=== PATIENT | female | born 1930 | race Caucasian/White ===

== ENCOUNTER → 2016-11-06 | Outpatient (CLI) | payer MEDICARE, OTHER | LOC: GMAJ 15:35 | PROVIDERS: ATTEND Family Medicine | DX: E03.9 Hypothyroidism, unspecified (principal) ==

== ENCOUNTER → 2017-02-19 | Outpatient (CLI) | payer MEDICARE, OTHER | LOC: GMAJ 10:38 | PROVIDERS: ATTEND Family Medicine | DX: E03.9 Hypothyroidism, unspecified (principal) ==

== ENCOUNTER → 2017-04-14 | Outpatient (CLI) | payer MEDICARE, OTHER ==
--- NOTE | 2017-04-15 15:04 | MRI ---
EXAM DESCRIPTION: MRI abdomen/MRCP CLINICAL HISTORY: Acute pancreatitis. Abdomen pain. Nausea and vomiting. Previous cholecystectomy COMPARISON: CT to 06/01/2016 TECHNIQUE: Multiplanar, multisequence MR images of the abdomen, MRCP protocol FINDINGS: Motion degraded study. No diagnostic stricture or filling defect in the common bile duct. Normal tapering without mass lesion in the duodenum. No abnormality of the proximal intrahepatic ducts. Previous cholecystectomy Marked pancreatic duct dilation beginning at the neck of the pancreas throughout the body and tail. Previous CT demonstrated a few punctate calcifications in the head and uncinate process and one calcification in the body related to chronic calcific pancreatitis. There was no pancreatic duct dilation on the CT from 2016. The dilated duct is about 7 mm transverse. The portion of the duct in the head neck junction demonstrates an abrupt cut off with a short segment of duct in the pancreas head. A direct connection with the common bile duct is not clearly delineated No diagnostic mass lesion. There is a difference in the signal intensity on T1-weighted images with higher signal in the uncinate and head and lower signal throughout the remainder of the pancreas. This is probably related to the obstruction and signal difference based on edema or other physiologic reason Diffuse fatty infiltration of the liver with mild fatty sparing centrally. No hepatic mass lesion. No mass lesion in the spleen or adrenal glands. There are a couple of small right renal cysts the largest of which is 1.4 cm No lymphadenopathy. No mass lesion in the visualized stomach, small or large intestine. A few partially visualized descending colon diverticula without diverticulitis IMPRESSION: Dilated pancreatic duct in the body and tail. Abrupt termination at the neck of the pancreas. Etiology is indeterminate although no definite mass lesion is seen. The presence of pre-existing known chronic calcific pancreatitis suggests a postinflammatory stricture is a good possibility. If stenting is performed recommend brush biopsies. Otherwise short interval follow-up 3 months, unless otherwise dictated by the clinical scenario. No diagnostic abnormality of the common bile duct or intrahepatic bile duct Fatty infiltration of the liver Electronically signed by: Willy Hammonds MD 04/15/2017 3:03 PM CDT
== END | disposition home or self-care (01) ==
LOC: MRI 13:03
PROVIDERS: ATTEND Internal Medicine Gastroenterology
DX: K85.90 Acute pancreatitis without necrosis or infection, unspecified (principal)

== ENCOUNTER → 2017-10-22 | Outpatient (CLI) | payer MEDICARE, OTHER | END | disposition home or self-care (01) | LOC: GMAJ 14:34 | PROVIDERS: ATTEND Family Medicine | DX: E03.9 Hypothyroidism, unspecified (principal) ==

== ENCOUNTER 2018-02-09 15:28 | Inpatient (IN) | payer MEDICARE, OTHER ==
[2018-02-09] MEDS ORDERED: SODIUM CHLORIDE 0.9% 500ML 500 ML IVS ONE (18:54)
--- NOTE | 2018-02-09 18:56 | ED.PDOC ---
History of Present Illness - General Chief Complaint: GI Problem Stated Complaint: abdominal pain Time Seen by Provider: 02/09/18 18:53 Source: patient Exam Limitations: no limitations - History of Present Illness Initial Comments: Halina Adams 87 y/o female brought by to ER with dull upper abdominal pains for the last 3 days worse with food.[place] nauseated no hematemesis,or blood in stool.Has history of chronic pancreatitis and had multiple work up done at [facility] but unable to find cause.Also had pancreatic stent in the past and scheduled to have another next month. Timing/Duration: getting worse, intermittent, other - 3 days Severity: moderate Improving Factors: nothing Worsening Factors: eating Associated Symptoms: loss of appetite Allergies/Adverse Reactions: Allergies Aspirin Allergy (Verified 07/22/13 07:08) Home Medications: Ambulatory Orders Atorvastatin Calcium [Lipitor] 40 mg PO HS #0 07/25/13 Carvedilol 6.25 mg PO BID #0 07/25/13 Clopidogrel Bisulfate [Plavix] 75 mg PO AM #0 07/25/13 Dipyridamole 50 mg PO BID #0 07/25/13 Estrogens, Conjugated [Premarin] 0.3 mg PO AM #0 07/25/13 Fenofibrate [Tricor] 145 mg PO AM #0 07/25/13 Furosemide [Lasix] 20 mg PO BID #0 07/25/13 Glipizide [Glucotrol Xl] 5 mg PO AM #0 07/25/13 HYDROcodone 5MG/APAP 325MG [[place] 5/325] 1 ea PO Q4-6H PRN #0 07/25/13 Levothyroxine Sodium [Synthroid] 0.05 mg PO AM #0 07/25/13 Losartan Potassium 25 mg PO AM #0 07/25/13 Pantoprazole Tablet [Protonix] 40 mg PO AM #0 07/25/13 Solifenacin [Vesicare] 5 mg PO AM #0 07/25/13 Topiramate [Topamax] 50 mg PO BID #0 07/25/13 Colchicine [Colcrys] 0.6 mg PO PRN 01/27/14 Review of Systems - Review of Systems Constitutional: States: no symptoms reported EENTM: States: no symptoms reported Respiratory: States: no symptoms reported Cardiology: States: no symptoms reported Gastrointestinal/Abdominal: States: see HPI Genitourinary: States: no symptoms reported Musculoskeletal: States: no symptoms reported All other Systems: Reviewed and Negative, No Change from Baseline Past Medical History (General) - Patient Medical History Hx Seizures: No Hx Stroke: Yes - TIAx3 Hx Asthma: No Hx of COPD: No Hx Cardiac Disorders: Yes Hx Congestive Heart Failure: No Hx Pacemaker: No Hx Hypertension: Yes Hx Diabetes: Yes Hx MRSA: No Hx Other PMH: Yes - chronic pancreatitis Surgical History: appendectomy, cholecystectomy, tonsillectomy, Hysterectomy - Vaccination History Hx Influenza Vaccination: Yes Hx Pneumococcal Vaccination: Yes - Social History Hx Alcohol Use: No Hx Substance Use: No Hx Physical Abuse: No Hx Emotional Abuse: No - Activities of Daily Living Grooming Ability: Independent Eating (Feeding) Ability: Independent Toileting Ability: Independent Family Medical History - Family History Mother Family History: Unknown Physical Exam - Physical Exam General Appearance: Alert, Anxious, No apparent distress Eye Exam: bilateral normal Ears, Nose, Throat: hearing grossly normal, normal ENT inspection, normal pharynx Neck: non-tender, supple, normal inspection Respiratory: chest non-tender, lungs clear, normal breath sounds, no respiratory distress Cardiovascular/Chest: normal peripheral pulses, regular rate, rhythm, no murmur Peripheral Pulses: radial,right: 2+, radial,left: 2+ Gastrointestinal/Abdominal: normal bowel sounds, soft, tenderness - upper abdomen Back Exam: no CVA tenderness, no vertebral tenderness Extremity: no pedal edema, no calf tenderness Neurologic: alert, oriented x 3 Skin Exam: normal color, warm/dry Progress - Progress Progress: 02/09/18 20:35 02/09/18 18:54 IV Care:Saline Lock per Protoc QSHIFT 02/09/18 19:00 URINE CULTURE W/COLONY COUNT Stat Laboratory Results - last 24 hr 02/09/18 02/09/18 02/09/18 19:00 19:00 19:15 WBC 7.0 RBC 4.20 Hgb 10.9 L Hct 33.8 L MCV 80.4 L MCH 25.9 L MCHC 32.2 L RDW 19.6 H Plt Count 294 MPV 8.1 Absolute Neuts (auto) 5.30 Absolute Lymphs (auto) 0.90 L Absolute Monos (auto) 0.70 Absolute Eos (auto) 0.10 Absolute Basos (auto) 0.00 Neutrophils % 75.4 Lymphocytes % 12.9 L Monocytes % 9.5 H Eosinophils % 1.8 Basophils % 0.4 Normal RBC Morphology 3+aniso PT 14.8 H INR 1.280 PTT (SP) 32.9 Sodium 137 Potassium 3.5 L Chloride 102 Carbon Dioxide 27 Anion Gap 11.5 L BUN 23 H Creatinine 0.95 BUN/Creatinine Ratio 24.2 H Random Glucose 133 H Serum Osmolality 279.4 Calcium 9.5 Magnesium 1.7 L Total Bilirubin 0.4 Direct Bilirubin 0.1 Indirect Bilirubin 0.3 AST 75 H ALT 10 Alkaline Phosphatase 66 Creatine Kinase 18 L CK-MB (CK-2) 1.0 CK-MB (CK-2) % Not Reportable Troponin I < 0.02 Serum Total Protein 7.2 Albumin 3.3 Lipase 19 L Urine Color Yellow Urine Appearance Sl cloudy Urine pH 7.0 Ur Specific [place] 1.015 Urine Protein Negative Urine Glucose (UA) Negative Urine Ketones Negative Urine Blood Trace-intact H Urine Nitrite Negative Urine Bilirubin Negative Urine Urobilinogen 0.2 Ur Leukocyte Esterase Small H Urine RBC 1-3 Urine WBC 10-20 H Ur Epithelial Cells 5-10 Urine Bacteria 4+ H 02/09/18 20:36 Vital Signs - 8 hr 02/09/18 02/09/18 02/09/18 17:40 18:40 19:22 Pulse Rate [ 71 70 74 pulse ox] Respiratory 18 18 14 Rate Blood Pressure 142/86 144/63 147/66 [Left Arm] O2 Sat by Pulse 96 99 89 L Oximetry - EKG/XRAY/CT XRAY: chest - no acute abnormalities Departure - Departure Clinical Impression: History of chronic pancreatitis Abdominal pain Qualifiers: Abdominal location: upper abdomen, unspecified Qualified Code(s): R10.10 - Upper abdominal pain, unspecified Time of Disposition: 21:01 Disposition: Admit Patient Condition: Fair Departure Forms: Patient Portal Self Enrollment Referrals: Magdaleno Jauregui MD [Primary Care Provider] - 1-2 Weeks Home Medications: Ambulatory Orders Atorvastatin Calcium [Lipitor] 40 mg PO HS #0 07/25/13 Carvedilol 6.25 mg PO BID #0 07/25/13 Clopidogrel Bisulfate [Plavix] 75 mg PO AM #0 07/25/13 Dipyridamole 50 mg PO BID #0 07/25/13 Estrogens, Conjugated [Premarin] 0.3 mg PO AM #0 07/25/13 Fenofibrate [Tricor] 145 mg PO AM #0 07/25/13 Furosemide [Lasix] 20 mg PO BID #0 07/25/13 Glipizide [Glucotrol Xl] 5 mg PO AM #0 07/25/13 HYDROcodone 5MG/APAP 325MG [[place] 5/325] 1 ea PO Q4-6H PRN #0 07/25/13 Levothyroxine Sodium [Synthroid] 0.05 mg PO AM #0 07/25/13 Losartan Potassium 25 mg PO AM #0 07/25/13 Pantoprazole Tablet [Protonix] 40 mg PO AM #0 07/25/13 Solifenacin [Vesicare] 5 mg PO AM #0 07/25/13 Topiramate [Topamax] 50 mg PO BID #0 07/25/13 Colchicine [Colcrys] 0.6 mg PO PRN 01/27/14 Decision To Admit - Decistion To Admit Decision to Admit Reason: Admit from ER Decision to Admit Date: 02/09/18 - D/W [place] Bourgeois-ANP/Hospitalist Decision to Admit Time: 21:01
[2018-02-09] MEDS ORDERED: HYDROmorphone HCL INJ 2 MG/ML VIAL IV ONE (19:06)
[2018-02-09] MEDS ORDERED: ONDANSETRON INJ 4 MG/2 ML VIAL IV ONE (19:06)
--- NOTE | 2018-02-09 19:20 | RAD ---
EXAM DESCRIPTION: Chest,1 View CLINICAL HISTORY: pain COMPARISON: 07/25/2013 FINDINGS: Cardiac silhouette is within normal limits. There is no focal parenchymal or pleural disease. Visualized osseous structures are within normal limits. IMPRESSION: No evidence of acute cardiopulmonary disease. Electronically signed by: Efra Sarkar 02/09/2018 7:18 PM CDT
[2018-02-09] MEDS ORDERED: IPRATROPIUM/ALBUTEROL 3 ML VIAL NEB ONE (21:04)
[2018-02-09] MEDS ORDERED: SODIUM CHLORIDE 0.9% (FLUSH) 10 ML SYG IV PRN (21:55)
--- NOTE | 2018-02-09 21:55 | HP ---
SUPERVISING PHYSICIAN: Magdaleno Jauregui MD CHIEF COMPLAINT: Abdominal pain. HISTORY OF PRESENT ILLNESS: This is an 87-year-old female with a history of chronic pancreatitis who came to the Emergency Room due to a three day history of upper abdominal pain. Apparently it is a little bit worse with food. She had some nausea, but no vomiting. She does have a history of chronic pancreatitis and has had pancreatic stents in the past. She was concerned that she may be getting another acute episode. When she came to the Emergency Room, her workup included labs and chest x-ray. Her labs showed a normal white count with a hemoglobin 10.9, hematocrit 33.8, platelet count 294. Chemistries showed a little bit of prerenal azotemia. Lipase was normal. UA was done and showed cloudy urine with 10 to 20 WBCs and 4+ urine bacteria. Chest x-ray did not show any significant findings. However, due to her ongoing, she is referred for observation. Upon examination, the patient has been given Dilaudid and her pain is much improved. She states at home she took as many as 3 hydrocodone without relief. PAST MEDICAL HISTORY: 1. Chronic pancreatitis with pancreatic stents place in the past. 2. Type 2 diabetes mellitus. 3. Hyperlipidemia. 4. Gastroesophageal reflux disease. 5. Hypertension. 6. Hypothyroidism. 7. Melanoma. 8. Chronic kidney disease. 9. Neuropathy. 10. Transient ischemic attack. PAST SURGICAL HISTORY: 1. Appendectomy. 2. Laparoscopic cholecystectomy. 3. Hysterectomy with bilateral salpingo-oophorectomy. 4. Tonsillectomy. 5. Lumbar fusion. 6. Bilateral knee replacement. 7. Bursectomies on bilateral hips. 8. Skin cancer removals which include melanoma, squamous cell carcinoma and basal cell carcinoma. 9. Benign cyst removed from the left foot. 10. Renal stents placed in the past ans subsequently removed. 11. Right shoulder arthroscopy. 12. Colonoscopy. 13. EGD. 14. ERCP with stent placed and subsequent removal. 15. Carpal tunnel release. 16. Trigger finger release. CURRENT MEDICATIONS: Please see the electronic record, they are not verified in the computer as of yet. ALLERGIES: ASPIRIN. FAMILY HISTORY: Significant for heart disease, Alzheimer's disease, cancer. SOCIAL HISTORY: No alcohol, no drugs, no smoking. REVIEW OF SYSTEMS: CONSTITUTIONAL: No fever or chills. No recent weight loss or weight gain. No malaise. HEENT: No headaches, vision changes, ear pain, nasal congestion or throat pain. RESPIRATORY: No cough, hemoptysis or pleuritic chest pain. CARDIOVASCULAR: No chest pain, palpitations or peripheral edema. GASTROINTESTINAL: Positive for nausea. No vomiting. Positive for upper abdominal pain. No diarrhea, constipation. GENITOURINARY: No dysuria, frequency or flank pain. HEMATOLOGIC: No easy bruising and no transfusion reactions. ENDOCRINE: No polydipsia, polyuria, polyphagia. No heat or cold intolerance. NEUROLOGIC: No headaches, vision changes, syncope, paresthesias. PHYSICAL EXAMINATION: VITAL SIGNS: Blood pressure 147/66. Heart rate 94. Respiratory rate 18. Temperature afebrile. O2 saturation 99%. GENERAL: Ms. Adams is an 87-year-old female who is in no distress currently. HEENT: Normocephalic, atraumatic. Pupils are equal and reactive. No nasal drainage. Throat with moist mucosa. NECK: Supple. Midline trachea. No jugular venous distention. CHEST: Symmetrical with equal rise and fall of the chest with inspiration and expiration. Lung sounds are clear to auscultation bilaterally. CARDIOVASCULAR: Regular rate and rhythm. Normal S1, S2. ABDOMEN: Soft. Positive bowel sounds. She does have epigastric tenderness to palpation. No lower abdominal tenderness to palpation. GENITOURINARY: Deferred. EXTREMITIES: Lower extremities with no significant edema. Pulses 2+. Capillary refill is less than 2 seconds. NEUROLOGIC: The patient is alert and oriented. Moves all extremities. Extraocular movements are intact. LABORATORY: As discussed above in history of present illness. ASSESSMENT: 1. Intractable abdominal pain in the epigastric area in a patient with a history of chronic pancreatitis without an acute exacerbation at this time. 2. Urinary tract infection. 3. Mild anemia. 4. Dehydration with prerenal azotemia. 5. Diabetes mellitus. PLAN: At this time, we will admit the patient for symptom control. I do not feel that she is having an acute exacerbation of her chronic pancreatitis. She does in fact have a urinary tract infection but I do not think it is causing her symptoms. I will treat with antibiotics and monitor the cultures. Additionally, she looks to be a little bit dehydrated, so I am going to give her some fluids. We will recheck her labs in the morning and her pain under control with Dilaudid 1 mg p.r.n. as she got in the Emergency Room and that seemed to help her. She does have multiple specialists in out of town locations and if she begins to exhibit exacerbation of pancreatitis, she may need to be referred to those facilities. However, at this point, that is not the case. We will resume her home medications tomorrow once they have been updated and verified. #[id number] ROSA
[2018-02-09] MEDS ORDERED: cefTRIAXone SODIUM 1 GM VIAL ONE (22:14)
[2018-02-09] MEDS ORDERED: SODIUM CHL 0.9% 50ML MIN-BAG+ 50 ML IVPB ONE (22:14)
[2018-02-09] MEDS: KCL 20 MEQ/NS 1,000 ML IVS PRN (22:19)
[2018-02-09] MEDS: cefTRIAXone SODIUM 1 GM in SODIUM CHL 0.9% 50ML MIN-BAG+ 50 ML IVPB SCH (22:24)
[2018-02-09] MEDS: IV SET AND CAP CHANGE INJ INJ SCH (22:26)
[2018-02-10] MEDS: HYDROmorphone HCL INJ 2 MG/ML VIAL IV PRN ×3 (00:12→08:13)
[2018-02-10] MEDS ORDERED: MAGNESIUM SULFATE PREMIX 2GM 2 GM in PREMIX BAG 1 BAG IVPB ONE (08:42)
[2018-02-10] MEDS: KCL 20 MEQ/NS 1,000 ML IVS PRN (08:46)
[2018-02-10] MEDS ORDERED: NON-FORMULARY MEDICATION 1 EA MIS (Fenofibrate [Tricor] 145 MG) PO SCH (09:00)
[2018-02-10] MEDS ORDERED: MAGNESIUM SULFATE PREMIX 2GM 50 ML IVPB ONE (09:20)
[2018-02-10] MEDS ORDERED: GLUCAGON INJ 1 MG VIAL SUBCU PRN (09:34)
[2018-02-10] MEDS ORDERED: DEXTROSE 50% 25 GM/50 ML SYG IV PRN (09:34)
[2018-02-10] MEDS ORDERED: INSULIN LISPRO 100 UNITS/ML PEN SUBCU SCH (11:30)
[2018-02-10] MEDS: CLOPIDOGREL 75 MG TAB PO SCH (11:38)
[2018-02-10] MEDS: CARVEDILOL 3.125 MG TAB PO SCH ×2 (11:38→20:56)
[2018-02-10] MEDS: TOPIRAMATE 25 MG TAB PO SCH ×2 (11:39→20:57)
[2018-02-10] MEDS: DICYCLOMINE HCL 20 MG TAB PO SCH ×3 (11:39→20:55)
--- NOTE | 2018-02-10 11:47 | CT ---
EXAM DESCRIPTION: Abdomen/Pelvis w/wo Contrast: Computed Tomography. CLINICAL HISTORY: abd pain COMPARISON: CT abdomen without contrast 12/11/2015. TECHNIQUE: Spiral-axial scans at 5.0 - mm intervals from the lung bases through the pubic symphysis, after water - soluble oral contrast, and scans repeated through the same levels after nonionic IV contrast. . Coronal and sagittal 2.0 - mm reconstructions. Tab. Delayed axial helical 5.0 - mm scans, same levels. No adverse reactions. Total Exam DLP: 2546.57 mGy-cm. This exam was performed according to our departmental CT dose-optimization program which includes automated exposure control, adjustment of the mA and/or kV according to patient size and/or use of iterative reconstruction technique; to reduce radiation dose to as low as reasonably achievable (ALARA). FINDINGS: Lung bases and pleura: Bilateral pleural thickening. Atelectasis right posterior lung base and bibasilar scarring. Coronary artery and aortic atherosclerotic calcifications. Liver, Spleen, Stomach, Adrenal glands: Stomach distended with gas and mostly oral contrast distally. Eccentric mass abutting the posterior wall of the greater curvature of the body of the stomach with central low-density nonenhancing. Mass approximately 3 x 4 cm possibly attached to the outer lining not mucosa. Adjacent mesenteric stranding Spleen and adrenal glands and kidneys unremarkable.. Pancreas/Gallbladder/Ducts: Pancreatic duct dilated. Gallbladder not well seen. Pancreatic head slightly prominent. Minimal stranding inferior to the body.. Kidneys and Ureters: Atrophy of the bilateral kidneys. Mesentery: Minimal stranding bilateral upper quadrants of the abdomen. Aorta: Diffuse atherosclerotic calcification narrowing of the distal lumen and calcification in the proximal common iliac arteries. No aneurysm. Small Bowel: Contains oral contrast with no distention proximally. No air-fluid levels. Terminal Ileum/Cecum: Normal caliber. Appendix not visualized. Normal density of the surrounding fat. Colon: Redundant descending colon with diffuse fecal material. Minimal diverticula distal descending and sigmoid colon sigmoid colon the minimally redundant. No calcifications. Pelvic Organs: Vaginal cuff negative. No fluid in the cul-de-sac. Urinary bladder well-distended with no radiodense stones. Spine and Bony Pelvis: Posterior fusion construct L3-S1 with spondylosis multiple levels. Bilateral significant L5-S1 narrowing. Abdominal Wall/Back Soft Tissues: Small bilateral fatty inguinal hernias not containing bowel. IMPRESSION: 1. Fatty stranding inferior to the proximal and mid body of the pancreas and be indicative of pancreatitis. Pancreatic duct dilated but no definite mass in the pancreatic head. 2. Irregularly enhancing mass on the posterior wall of the greater curvature of the upper stomach with central necrosis. Cannot exclude primary inflammatory lesion, primary malignancy, or metastatic disease. Minimal adjacent fatty stranding. 3. Redundant colon with distal diverticulosis but no complications. Diffuse areas of fatty stranding may be related to patient's age. No ascites or free air. Small bilateral fatty inguinal hernias not containing bowel. Electronically signed by: Efra Vance MD 02/10/2018 11:45 AM CDT
[2018-02-10] MEDS: ESTROGENS CONJUGATED 0.3 MG PO SCH (12:23)
[2018-02-10] MEDS: TOLTERODINE TARTRATE ER 4 MG CAP PO SCH ×2 (12:23→20:56)
[2018-02-10] MEDS: KCL 20MEQ/D5 1/2NS 1,000 ML IVS PRN ×2 (12:26→20:43)
--- NOTE | 2018-02-10 13:55 | PN ---
DATE: 02/10/18 SUPERVISING PHYSICIAN: Magdaleno Jauregui MD SUBJECTIVE: The patient is lying in bed and complains of the epigastric abdominal pain but no nausea and vomiting at this time. No shortness of breath or chest pain. She says she just cannot get comfortable and continues to hurt, although using the pain medications here in the hospital have helped more than her oral pain medication at home. OBJECTIVE: VITAL SIGNS: She is afebrile. Heart rate 59, blood pressure 116/62, it dropped as low as 95/59. Respiratory rate 18, 02 saturation 92% on room air. GENERAL: This is a 89 year-old female patient lying in her hospital bed. She is in no acute distress. RESPIRATORY: Essentially clear to auscultation bilaterally. CARDIAC: Regular rate and rhythm. GI: Abdomen soft, tender in the epigastric and left upper quadrant. There is no rebound tenderness or guarding. Bowel sounds are positive. EXTREMITIES: No cyanosis, clubbing, or edema. NEURO: She is awake, alert, and oriented x3. LABORATORY: WBC 6.3 with hemoglobin of 10, hematocrit 31.3, platelet count 259 ,000, sodium 138, potassium 3.9, chloride 107, carbon dioxide 24, BUN 20, creatinine 0.97, glucose 178. AST 62, ALT 9, serum total protein 6.1. Albumin 2.9. Urine culture is pending. CT of the abdomen and pelvis shows: 1. Fatty stranding inferior to the proximal and midbody of the pancreas and could be indicative of pancreatitis. Pancreatic duct is dilated but no definite mass in the pancreatic head. 2. Irregularly enhancing mass on the posterior wall of the great curvature of the upper stomach with central necrosis, cannot exclude primary inflammatory lesion, primary malignancy or metastatic disease. Minimal adjacent fatty stranding. 3. Redundant colon with distal diverticulosis with no complications. Diffuse area of fatty stranding may be related to patient's age. No ascites or free air. Small bilateral fatty inguinal hernia is not containing bowel. All other labs and films have been reviewed via the EMR. ASSESSMENT: 1. Chronic pancreatitis with an acute exacerbation. 2. Intractable abdominal pain in the epigastric region most likely secondary to #1. 3. Urinary tract infection. 4. Mild anemia. 5. Dehydration with prerenal azotemia. 6. Diabetes mellitus. PLAN: The patient has been changed from observation to an inpatient. She will be on bowel rest and I have started her on a dextrose solution IV. Will monitor her blood sugars every 6 hours. She does have an appointment with her GI doctor who is Dr. Abernathy.on March 02, 2018. She has been made n.p.o. Do routine labs in the morning. Will follow closely and treat as needed. #[id number] MTDD
[2018-02-10] MEDS: FUROSEMIDE 40 MG TAB PO SCH (15:50)
[2018-02-10] MEDS: INSULIN LISPRO 100 UNITS/ML PEN SUBCU SCH (18:47)
[2018-02-10] MEDS ORDERED: SODIUM CHL 0.9% 50ML MIN-BAG+ 50 ML IVPB ONE (19:29)
[2018-02-10] MEDS ORDERED: cefTRIAXone SODIUM 1 GM VIAL ONE (19:30)
[2018-02-10] MEDS ORDERED: ATORVASTATIN 20 MG TAB PO SCH (21:00)
[2018-02-10] MEDS: cefTRIAXone SODIUM 1 GM in SODIUM CHL 0.9% 50ML MIN-BAG+ 50 ML IVPB SCH (21:47)
[2018-02-11] MEDS: INSULIN LISPRO 100 UNITS/ML PEN SUBCU SCH ×4 (00:15→18:35)
[2018-02-11] MEDS: HYDROmorphone HCL INJ 2 MG/ML VIAL IV PRN ×3 (01:02→09:44)
[2018-02-11] MEDS: KCL 20MEQ/D5 1/2NS 1,000 ML IVS PRN ×3 (05:11→21:19)
[2018-02-11] MEDS: CARVEDILOL 3.125 MG TAB PO SCH ×2 (08:29→21:15)
[2018-02-11] MEDS: FENOFIBRIC ACID 135 MG CAP PO SCH (08:29)
[2018-02-11] MEDS: FUROSEMIDE 40 MG TAB PO SCH ×2 (08:30→17:13)
[2018-02-11] MEDS: TOLTERODINE TARTRATE ER 4 MG CAP PO SCH ×2 (08:31→21:14)
[2018-02-11] MEDS: CLOPIDOGREL 75 MG TAB PO SCH (08:32)
[2018-02-11] MEDS: TOPIRAMATE 25 MG TAB PO SCH ×2 (08:32→21:14)
[2018-02-11] MEDS: ESTROGENS CONJUGATED 0.3 MG PO SCH (08:33)
[2018-02-11] MEDS: DICYCLOMINE HCL 20 MG TAB PO SCH ×3 (08:34→21:15)
[2018-02-11] MEDS: LOSARTAN POTASSIUM 25 MG TAB PO SCH (08:45)
[2018-02-11] MEDS: LEVOTHYROXINE SODIUM 0.025 MG TAB PO SCH (08:45)
[2018-02-11] MEDS: ENOXAPARIN SODIUM 40 MG/0.4 ML SYG SUBCU SCH (15:47)
[2018-02-11] MEDS: PANTOPRAZOLE SODIUM IV 40 MG VIAL IV SCH (15:47)
--- NOTE | 2018-02-11 16:28 | PN ---
DATE: 02/11/18 SUPERVISING PHYSICIAN: Magdaleno Jauregui M.D. SUBJECTIVE: The patient is lying in bed asleep. She awakens easily. She has had several bouts of epigastric pain that has required IV pain medications. The pain is less severe than it was. She also has had some mild diarrhea, although she said when she is on a liquid diet she frequently has problems with diarrhea. We discussed that Dr. Roldan wanted her to make sure she keeps her appointment on the with him and she has agreed to do so. She has been told that she should take the DVD of her radiology reports to Dr. Roldan at the time of her appointment. OBJECTIVE: VITAL SIGNS: She is afebrile, heart rate 65, blood pressure 103/59, respiratory rate 16, O2 sat 93% on room air. RESPIRATORY: Essentially clear to auscultation bilaterally. CARDIAC: Regular rate and rhythm. GASTROINTESTINAL: Abdomen is soft, nondistended. It is mildly tender to the epigastric region. There is no rebound tenderness or guarding. Her tenderness has improved since yesterday. NEUROLOGIC: She is awake, alert and oriented times three. LABORATORY: WBCs are 5.6, hemoglobin 9.3, hematocrit 30.3, platelets 282. Sodium 138, potassium 4.3, chloride 107, carbon dioxide 25, BUN 16, creatinine 0.96. Preliminary urine cultures show no growth after 24 hours. All other labs and films have been reviewed via the EMR. ASSESSMENT: 1. Chronic pancreatitis with an acute exacerbation with a low amylase and lipase. 2. Intractable abdominal pain in the epigastric region most likely secondary to #1. 3. Urinary tract infection. 4. Mild anemia. 5. Dehydration with prerenal azotemia. 6. Diabetes mellitus. 7. Abdominal mass on the posterior wall of the great curvature of the upper stomach of unknown etiology per CT scan. PLAN: We will continue present supportive care. I will advance her diet this evening. Hold on checking her labs tomorrow as we will see how she tolerates her diet. I spoke with Dr. Roldan's office, her food truck caterer, and they strongly encourage the patient to do her followup with him on March 02. Otherwise we will continue to follow the patient closely. Dr. Jauregui is the collaborating physician available for consultation. #[id number] [facility]
[2018-02-11] MEDS ORDERED: SODIUM CHL 0.9% 50ML MIN-BAG+ 50 ML IVPB ONE (20:28)
[2018-02-11] MEDS ORDERED: cefTRIAXone SODIUM 1 GM VIAL ONE (20:29)
[2018-02-11] MEDS: cefTRIAXone SODIUM 1 GM in SODIUM CHL 0.9% 50ML MIN-BAG+ 50 ML IVPB SCH (21:16)
[2018-02-11] MEDS: ATORVASTATIN 20 MG TAB PO SCH (21:16)
[2018-02-12] MEDS: INSULIN LISPRO 100 UNITS/ML PEN SUBCU SCH ×5 (00:28→21:35)
[2018-02-12] MEDS: PANTOPRAZOLE SODIUM IV 40 MG VIAL IV SCH (06:24)
[2018-02-12] MEDS: LEVOTHYROXINE SODIUM 0.025 MG TAB PO SCH (06:24)
[2018-02-12] MEDS: KCL 20MEQ/D5 1/2NS 1,000 ML IVS PRN (08:37)
[2018-02-12] MEDS: LOSARTAN POTASSIUM 25 MG TAB PO SCH (08:39)
[2018-02-12] MEDS: CARVEDILOL 3.125 MG TAB PO SCH ×2 (08:39→21:33)
[2018-02-12] MEDS: CLOPIDOGREL 75 MG TAB PO SCH (08:39)
[2018-02-12] MEDS: FENOFIBRIC ACID 135 MG CAP PO SCH (08:39)
[2018-02-12] MEDS: TOLTERODINE TARTRATE ER 4 MG CAP PO SCH ×2 (08:40→21:32)
[2018-02-12] MEDS: TOPIRAMATE 25 MG TAB PO SCH ×2 (08:40→21:32)
[2018-02-12] MEDS: FUROSEMIDE 40 MG TAB PO SCH (08:43)
[2018-02-12] MEDS: DICYCLOMINE HCL 20 MG TAB PO SCH ×3 (08:43→16:48)
[2018-02-12] MEDS: SODIUM CHLORIDE 0.9% (FLUSH) 10 ML SYG IV SCH (10:27)
[2018-02-12] MEDS: ENOXAPARIN SODIUM 40 MG/0.4 ML SYG SUBCU SCH (10:46)
[2018-02-12] MEDS ORDERED: cefTRIAXone SODIUM 1 GM VIAL ONE (20:05)
[2018-02-12] MEDS ORDERED: SODIUM CHL 0.9% 50ML MIN-BAG+ 0 ML IVPB ONE (20:05)
--- NOTE | 2018-02-12 20:07 | PN ---
DATE: 02/12/18 SUPERVISING PHYSICIAN: Magdaleno Jauregui M.D. SUBJECTIVE: The patient is lying in bed. She is reading a book. Has had no complaints of abdominal pain, nausea or vomiting. Has not required any IV pain medications. We again talked about her going to see her power nut runner operator on 03/02/18 and she has agreed to see him. OBJECTIVE: She is afebrile, heart rate 92, blood pressure 147/68, respiratory rate 20, O2 sat 97% on room air. RESPIRATORY: Essentially clear to auscultation bilaterally. CARDIAC: Regular rate and rhythm. GASTROINTESTINAL: She is slightly tender to the epigastric region but much improved since yesterday. No guarding or rebound tenderness. Bowel sounds are positive. NEUROLOGIC: She is awake, alert and oriented times three. LABORATORY: Blood sugars have run between 126 and 211. Urine culture shows no growth. All other labs and films have been reviewed via the EMR. ASSESSMENT: 1. Chronic pancreatitis with an acute exacerbation with a low amylase and lipase. 2. Intractable abdominal pain in the epigastric region most likely secondary to #1. 3. Urinary tract infection. 4. Mild anemia. 5. Dehydration with prerenal azotemia. 6. Diabetes mellitus. 7. Abdominal mass on the posterior wall of the great curvature of the upper stomach of unknown etiology per CT scan. PLAN: We will continue present supportive care. I have advanced her to a bland diet. She is usually on Tresiba 12 units. Because she has been on clear liquids and just now changed to a bland diet, I will give her 5 units of Tresiba tonight. I have discontinued her IV. I have also discontinued her IV pain medications. She has a DVD that is on her chart and it needs to go with her on discharge. If she tolerates her diet well overnight, she should be able to be discharged tomorrow. She does have an appointment with her GI doctor in [place], Dr. Rlodan, on 03/02/18. I have called his office and he is aware of the mass that is growing by her stomach. She is to followup with him at that time and then Dr. Jauregui, her primary care physician, after that. I have ordered routine lab for in the morning. We will continue to monitor the patient closely and follow as needed. Dr. Jauregui is the collaborating physician available for consultation. #[id number] [facility]
[2018-02-12] MEDS ORDERED: NON-FORMULARY MEDICATION 1 EA MIS SUBCU ONE (21:00)
[2018-02-12] MEDS: IV SET AND CAP CHANGE INJ INJ SCH (21:00)
[2018-02-12] MEDS: ATORVASTATIN 20 MG TAB PO SCH (21:30)
[2018-02-12] MEDS: CEFDINIR 300 MG CAP PO SCH (22:43)
[2018-02-13] MEDS: SODIUM CHLORIDE 0.9% (FLUSH) 10 ML SYG IV SCH ×2 (02:34→09:16)
[2018-02-13] MEDS: LEVOTHYROXINE SODIUM 0.025 MG TAB PO SCH (06:24)
[2018-02-13] MEDS ORDERED: PANTOPRAZOLE SODIUM TAB 40 MG PO SCH (06:30)
[2018-02-13] MEDS: INSULIN LISPRO 100 UNITS/ML PEN SUBCU SCH ×2 (07:44→11:59)
[2018-02-13] MEDS: DICYCLOMINE HCL 20 MG TAB PO SCH ×2 (07:45→11:59)
[2018-02-13] MEDS: FUROSEMIDE 40 MG TAB PO SCH ×2 (08:35→09:16)
[2018-02-13] MEDS: CEFDINIR 300 MG CAP PO SCH (09:15)
[2018-02-13] MEDS: CARVEDILOL 3.125 MG TAB PO SCH (09:15)
[2018-02-13] MEDS: TOLTERODINE TARTRATE ER 4 MG CAP PO SCH (09:15)
[2018-02-13] MEDS: LOSARTAN POTASSIUM 25 MG TAB PO SCH (09:15)
[2018-02-13] MEDS: TOPIRAMATE 25 MG TAB PO SCH (09:15)
[2018-02-13] MEDS: CLOPIDOGREL 75 MG TAB PO SCH (09:16)
[2018-02-13] MEDS: FENOFIBRIC ACID 135 MG CAP PO SCH (09:16)
[2018-02-13] MEDS: ENOXAPARIN SODIUM 40 MG/0.4 ML SYG SUBCU SCH (09:21)
[2018-02-13 10:09] VITALS: BP 135/62; TEMP 97.4; O2SAT 99
--- NOTE | 2018-02-17 15:04 | DS ---
SUPERVISING PHYSICIAN: Kwame French M.D. DISCHARGE DIAGNOSIS: 1. Chronic pancreatitis with an acute exacerbation. 2. Abdominal pain epigastric region secondary to #1. 3. Urinary tract infection. treated to completion with culture results showing to be negative. 4. Mild anemia, microcytic/hypochromic presentation, likely chronic illness. 5. Dehydration with prerenal azotemia improved with IV fluids. 6. Diabetes mellitus. 7. Abdominal mass on the posterior wall of the great curvature of the upper stomach of unknown etiology per CT scan being followed by her etl database developer, in [facility], Dr. Roldan with an appointment on 03/02/18. REASON FOR HOSPITALIZATION: Ms. Adams is an 87-year-old female patient with a history of chronic pancreatitis that presented to the Emergency Room due to a three day history of upper abdominal pain. Apparently she had been getting worse with food and has some nausea but no vomiting. She has had pancreatic stents in the past and was concerned that she may be getting another acute episode. When she presented to the Emergency Room, her labs indicated she had a normal white count. Chemistries showed prerenal azotemia with pancreatic enzymes being normal. UA showed 10 to 20 WBCs, 4+ bacteria. Chest x -ray without any significant findings. She was admitted to the Medical/ Surgical floor for further treatment of acute pancreatitis in stable condition. LABORATORY: White count on admission was 7,000, hemoglobin 10.9, hematocrit 33.8, platelet count 294,000. Differential showed to be within normal limits. At discharge white count was 5,000, hemoglobin and hematocrit were stable at 10.7 and 32.9, platelet count 347,000. Differential was unchanged. RBC indices indicated a microcytic hypochromic presentation. Coagulation studies showed just a slightly elevated PT of 14.8 with INR 1.28, PTT 32.9. Chemistries at admission in the E. R. showed normal electrolytes, BUN 20, creatinine 0.97, glucose 101. AST was slightly elevated at 62. All other liver functions were within normal limits as well as her amylase and lipase. At discharge, her electrolytes showed to be within normal limits with potassium 4.3. Pancreatic enzymes remained within normal limits. Blood sugars were well controlled between 132 to 235. Urine showed trace of blood with small leukocyte esterase with microscopic showing 1 to 3 RBCs, 10 to 20 WBCs, 5 to 10 epithelials with 4+ bacteria. MICROBIOLOGY: Urine culture final results in a clean catch specimen showed insignificant colony count of mixed tamy. RADIOLOGY: She had a chest x-ray initially in the Emergency Department and per radiology interpretation of portable chest showed no evidence of acute cardiopulmonary disease. This was followed-up with a CT of the abdomen and pelvis after admission which was done with and without contrast, findings per radiology interpretation showed fatty stranding inferior to the proximal and mid body of the pancreas indicating pancreatitis with the pancreatic duct dilated but no definite mass in the pancreatic head. There is note of irregular enhancing mass in the posterior wall of the greater curvature of the upper stomach with essential necrosis. Could not exclude primary inflammatory lesion, primary malignancy or metastatic disease. Minimal adjacent fatty stranding. There was also redundant colon with distal diverticulosis but no complications. Diverse areas of fat stranding may be related to the patient's age. No ascites or free air. There was small bilateral fatty inguinal hernias not containing bowel. HOSPITAL COURSE: Ms. Adams was admitted as noted above for acute pancreatitis. She was given fluid. She was kept NPO until she was no longer having abdominal pains. She was provided pain management with Dilaudid as needed. In regards to her urinary tract infection, initially on admission. She was started on Rocephin. She had magnesium replacement as well as fluids and was on sliding scale. As her abdominal pain subsided, she was advanced in her diet and was tolerating this well on the day of discharge. She was no longer having significant pain and was felt clinically stable enough to be discharged. It was felt that she was no longer having any symptoms from the urinary tract infection and given that the culture had not grown anything of significance, antibiotics were stopped and she was discharged without any continuation of antibiotics. PLAN: Ms. Adams was discharged on 02/13/18 to have close followup with Dr. Roldan, her GI specialist, as scheduled and Dr. Jauregui, her primary care provider. She was to resume her activities as tolerated. Diet was to resume a normal diet to include an 1800 calorie ADA diet as tolerated. No new medications were prescribed at discharge. All other medications were resumed as previous. At discharge, condition was stable and improved. #[id number] [facility]
== END 2018-02-13 12:03 | disposition home or self-care (01) | DRG 439 ==
LOC: ER 15:28 → MS 21:53 → OBSVTOIN 21:53
PROVIDERS: ADMIT Nurse Practitioner; ATTEND Nurse Practitioner Family
DX: K85.90 Acute pancreatitis without necrosis or infection, unspecified (principal); N39.0 Urinary tract infection, site not specified; K86.1 Other chronic pancreatitis; E11.40 Type 2 diabetes mellitus with diabetic neuropathy, unspecified; E11.22 Type 2 diabetes mellitus with diabetic chronic kidney disease; I12.9 Hypertensive chronic kidney disease with stage 1 through stage 4 chronic kidney disease, or unspecified chronic kidney disease; N18.9 Chronic kidney disease, unspecified; E78.5 Hyperlipidemia, unspecified; K21.9 Gastro-esophageal reflux disease without esophagitis; E03.9 Hypothyroidism, unspecified; Z96.653 Presence of artificial knee joint, bilateral; D64.9 Anemia, unspecified; E86.0 Dehydration; Z85.820 Personal history of malignant melanoma of skin; Z86.73 Personal history of transient ischemic attack (TIA), and cerebral infarction without residual deficits; Z98.1 Arthrodesis status

== ENCOUNTER → 2018-03-16 | Outpatient (CLI) | payer MEDICARE, OTHER | LOC: GMAJ 11:10 | PROVIDERS: ATTEND Family Medicine | DX: E03.9 Hypothyroidism, unspecified (principal) ==

== ENCOUNTER 2018-05-15 22:51 | Observation (INO) | payer MEDICARE, OTHER ==
[2018-05-15] MEDS ORDERED: SUCRALFATE 1 GM TAB PO ONE (23:15)
[2018-05-15] MEDS ORDERED: ASPIRIN TABLET 325 MG TAB PO ONE (23:15)
[2018-05-15] MEDS ORDERED: ALUM & MAG HYDROX-SIMETHICONE 30 ML, LIDOCAINE VISCOUS 2% 15 ML PO ONE ×2 (23:15)
[2018-05-15] MEDS ORDERED: ALUM & MAG HYDROX-SIMETHICONE 30 ML UD ONE (23:30)
[2018-05-15] MEDS ORDERED: LIDOCAINE HCL 2% (MOUTH-THROAT) 15 ML UD ONE (23:30)
--- NOTE | 2018-05-15 23:34 | RAD ---
EXAM DESCRIPTION: Chest,1 View CLINICAL HISTORY:87 years Female, substernal chest pain Comparison: February 09, 2018 FINDINGS: No focal lung consolidation. No pleural effusion. No pneumothorax. Cardiac and mediastinal silhouette is unremarkable. No acute osseous abnormality. Soft tissues are unremarkable. IMPRESSION: No acute findings. No focal lung consolidation. Electronically signed by: Brendan Lenz MD 05/15/2018 11:33 PM CDT
[2018-05-16] MEDS ORDERED: PANTOPRAZOLE INJECTION 40 MG in SODIUM CHLORIDE 0.9% 100ML 100 ML IVPB ONE (00:27)
[2018-05-16] MEDS ORDERED: PANTOPRAZOLE SODIUM IV 40 MG VIAL ONE (00:28)
[2018-05-16] MEDS ORDERED: SODIUM CHLORIDE 0.9% 100ML 100 ML IVPB ONE ×2 (00:29→01:31)
--- NOTE | 2018-05-16 00:34 | ED.PDOC ---
History of Present Illness - General Chief Complaint: Chest Pain/FL Stated Complaint: chest pain Time Seen by Provider: 05/15/18 23:13 Source: patient Exam Limitations: no limitations - History of Present Illness Initial Comments: The patient is an 87-year-old female presenting to emergency room secondary to lower substernal chest pain that actually turns out to be epigastric pain. She does have a cardiac history as she did have a stent placed in one of her coronary arteries approximately 10 months ago. She has not had real chest pain since that time. She does take aspirin and Plavix. She has had a history of gastritis in the past. She has also had a history of significant recurrent episodes of pancreatitis. On one of her most recent visits here she had a CT scan that showed a questionable mass behind the greater curvature of the stomach. This was followed up with endoscopy with GI in the [facility] with ultrasound which showed only changes from her chronic pancreatitis rather than any additional mass. The patient is actually essentially chest pain-free upon arrival here and was given doses of Carafate and a GI cocktail after the pain was found to be essentially reproducible with epigastric palpation. The patient had taken a longer road trip today with eating very little food. She is not having palpitations. No shortness of breath. No leg pain. No swelling. No vomiting. Timing/Duration: 4-6 hours Severity: moderate Improving Factors: medication Worsening Factors: nothing Associated Symptoms: chest pain, loss of appetite Allergies/Adverse Reactions: Allergies NO KNOWN ALLERGY Allergy (Verified 02/09/18 22:20) Home Medications: Ambulatory Orders Atorvastatin Calcium [Lipitor] 40 mg PO HS #0 07/25/13 Carvedilol 6.25 mg PO BID #0 07/25/13 Clopidogrel Bisulfate [Plavix] 75 mg PO AM #0 07/25/13 Estrogens, Conjugated [Premarin] 0.3 mg PO AM #0 07/25/13 Fenofibrate [Tricor] 145 mg PO AM #0 07/25/13 Furosemide [Lasix] 20 mg PO BID #0 07/25/13 HYDROcodone 5MG/APAP 325MG [[place] 5/325] 1 ea PO Q4-6H PRN #0 07/25/13 Levothyroxine Sodium [Synthroid] 0.05 mg PO AM #0 07/25/13 Losartan Potassium 25 mg PO AM #0 07/25/13 Pantoprazole Tablet [Protonix] 40 mg PO AM #0 07/25/13 Topiramate [Topamax] 50 mg PO BID #0 07/25/13 Aspirin [Aspirin Adult Low Dose] 81 mg PO DAILY 02/09/18 Dicyclomine HCl [Bentyl] 10 mg PO TID 02/09/18 Insulin Degludec [Tresiba Flextouch] 12 unit SC BEDTIME 02/09/18 Nitroglycerin 0.3 mg [Nitrostat] 1 ea SL Q5M 02/09/18 Solifenacin [Vesicare] 5 mg PO BID 02/09/18 Review of Systems - Review of Systems Constitutional: States: no symptoms reported EENTM: States: no symptoms reported Respiratory: States: no symptoms reported Cardiology: States: chest pain Gastrointestinal/Abdominal: States: abdominal pain Genitourinary: States: no symptoms reported Musculoskeletal: States: no symptoms reported Skin: States: no symptoms reported Neurological: States: anxiety Endocrine: States: no symptoms reported All other Systems: No Change from Baseline Past Medical History (General) - Patient Medical History Hx Seizures: No Hx Stroke: No Hx Asthma: No Hx of COPD: No Hx Cardiac Disorders: Yes - stent placed Hx Congestive Heart Failure: Yes Hx Pacemaker: No Hx Hypertension: Yes Hx Diabetes: Yes Hx MRSA: No Surgical History: other - Vaccination History Hx Influenza Vaccination: Yes Hx Pneumococcal Vaccination: Yes - Social History Hx Tobacco Use: No Hx Alcohol Use: No Hx Substance Use: No Hx Physical Abuse: No Hx Emotional Abuse: No Family Medical History - Family History Mother Family History: Unknown Physical Exam - Physical Exam General Appearance: Alert, Anxious, No apparent distress, Other - the patient appears well-nourished and interactivee. She does not appear to be in any distress. Eye Exam: bilateral normal Ears, Nose, Throat: hearing grossly normal, normal ENT inspection, normal pharynx Neck: full range of motion, supple Respiratory: lungs clear, normal breath sounds, no respiratory distress, no accessory muscle use Cardiovascular/Chest: normal peripheral pulses, regular rate, rhythm, no edema Peripheral Pulses: radial,right: 2+, radial,left: 2+, dorsalis pedis,right: 2+, dorsalis pedis,left: 2+ Gastrointestinal/Abdominal: soft, other - epigastric tenderness to palpation. No real rebound or peritoneal signs but the tenderness is there. Rectal Exam: deferred Back Exam: normal inspection, no CVA tenderness Extremity: normal range of motion, non-tender, normal inspection, no pedal edema , normal capillary refill Neurologic: special education curriculum specialist II-XII nml as tested, alert, normal mood/affect, oriented x 3 Skin Exam: normal color Comments: Vital Signs - 24 hr 05/15/18 23:05 Temperature 99.3 F Pulse Rate [ 55 L right brachial] Respiratory 22 Rate Blood Pressure 148/50 [right brachial ] O2 Sat by Pulse 99 Oximetry Progress - Progress Progress: 05/16/18 00:36 the patient's an 87-year-old female presenting to the emergency room with substernal chest pain that really looks more like epigastric pain at this point. She does have a history of gastritis and is being treated for gastritis currently in the ER. She has received a dose of Carafate, a GI cocktail and a dose of IV Protonix. She will likely need another dose of Maalox soon. There is a possibility still of the patient having lower substernal chest pain from a cardiac origin given her history so the patient is going to be placed in for a longer-term rule out. She has received a dose of aspirin. Continue telemetry monitoring. Vital signs have remained stable. Admit to observation for rule out FL. - Results/Orders Results/Orders: no overt evidence of fluid overload or infiltrate. No pneumothorax. No effusions. 05/15/18 23:14 Telemetry .CONTINUOUS normal sinus rhythm UA [URINALYSIS] Stat still pending at this time 05/15/18 23:15 EKG STAT EKG shows mild sinus bradycardia rate of 57 bpm. Mild poor R-wave progression in anterior leads. No acute ST segment changes concerning for ischemia. Corrected QT interval is within normal limits. Laboratory Results - last 24 hr 05/15/18 05/15/18 05/15/18 23:14 23:14 23:14 WBC 5.5 RBC 3.72 L Hgb 10.1 L Hct 31.5 L MCV 84.9 MCH 27.1 MCHC 32.1 L RDW 18.4 H Plt Count 181 MPV 7.3 L Absolute Neuts (auto) 3.70 Absolute Lymphs (auto) 1.00 Absolute Monos (auto) 0.50 Absolute Eos (auto) 0.30 Absolute Basos (auto) 0.00 Neutrophils % 66.6 Lymphocytes % 17.8 L Monocytes % 9.9 H Eosinophils % 5.1 H Basophils % 0.6 PT 10.1 INR 1.01 PTT (SP) 25.4 Sodium 141 Potassium 4.0 Chloride 110 Carbon Dioxide 25 Anion Gap 10.0 L BUN 32 H Creatinine 1.01 BUN/Creatinine Ratio 31.7 H Random Glucose 203 H Serum Osmolality 294.0 Calcium 9.1 Total Bilirubin 0.3 AST 34 ALT 16 Alkaline Phosphatase 122 H Creatine Kinase 32 CK-MB (CK-2) 3.0 CK-MB (CK-2) % Not Reportable Troponin I 0.02 B-Natriuretic Peptide 204.0 H* Serum Total Protein 6.2 L Albumin 3.1 L Globulin 3.1 Albumin/Globulin Ratio 1.0 L Amylase 21 L Lipase < 14 L Departure - Departure Clinical Impression: Substernal chest pain Gastritis Qualifiers: Gastritis type: unspecified gastritis Chronicity: acute Gastritis bleeding: presence of bleeding unspecified Qualified Code(s): K29.00 - Acute gastritis without bleeding Disposition: Admit Patient Referrals: Magdaleno Jauregui MD [Primary Care Provider] - 1-2 Weeks Home Medications: Ambulatory Orders Atorvastatin Calcium [Lipitor] 40 mg PO HS #0 07/25/13 Carvedilol 6.25 mg PO BID #0 07/25/13 Clopidogrel Bisulfate [Plavix] 75 mg PO AM #0 07/25/13 Estrogens, Conjugated [Premarin] 0.3 mg PO AM #0 07/25/13 Fenofibrate [Tricor] 145 mg PO AM #0 07/25/13 Furosemide [Lasix] 20 mg PO BID #0 07/25/13 HYDROcodone 5MG/APAP 325MG [[place] 5/325] 1 ea PO Q4-6H PRN #0 07/25/13 Levothyroxine Sodium [Synthroid] 0.05 mg PO AM #0 07/25/13 Losartan Potassium 25 mg PO AM #0 07/25/13 Pantoprazole Tablet [Protonix] 40 mg PO AM #0 07/25/13 Topiramate [Topamax] 50 mg PO BID #0 07/25/13 Aspirin [Aspirin Adult Low Dose] 81 mg PO DAILY 02/09/18 Dicyclomine HCl [Bentyl] 10 mg PO TID 02/09/18 Insulin Degludec [Tresiba Flextouch] 12 unit SC BEDTIME 02/09/18 Nitroglycerin 0.3 mg [Nitrostat] 1 ea SL Q5M 02/09/18 Solifenacin [Vesicare] 5 mg PO BID 02/09/18 Decision To Admit - Decistion To Admit Decision to Admit Reason: Medical Nature Decision to Admit Date: 05/16/18 Decision to Admit Time: 00:38
--- NOTE | 2018-05-16 01:07 | HP ---
SUPERVISING PHYSICIAN: Magdaleno Jauregui M.D. CHIEF COMPLAINT: Chest pain. HISTORY OF PRESENT ILLNESS: This is an 87 year-old female patient who presented to the Emergency Room secondary to substernal chest pain. She has a cardiac history and had a stent placed about 10 months ago. She recently had a workup by her GI doctor in [place] as she has had recurrent problems with pancreatitis. She has also had a history of gastritis in the past. She had an endoscopy about 2 months ago. She is actually on Bentyl and a PPI. In the Emergency Room, her initial cardiac enzymes were negative. She was given a GI cocktail as well as some Carafate and her pain subsided. She had been very anxious earlier in the day because she had an aunt that was to be flying and she was worried about her. She does admit to getting easily worked up with pretty significant anxiety. In the E. R., her WBCs were 5.5 with 10.1 and 31.5 H&H. Electrolytes were basically within normal limits. BUN was slightly elevated at 32. BNP was also slightly elevated at 204 with serum total protein of 6.2. Subsequent cardiac enzymes were also negative. UA was basically within normal limits other than having a trace of urine blood. Chest x-ray showed no acute findings or focal consolidations. I was called for hospital admission. PAST MEDICAL HISTORY: 1. Chronic pancreatitis with pancreatic stents placed in the past. 2. Diabetes mellitus type 2. 3. Hyperlipidemia. 4. Gastroesophageal reflux disease. 5. Hypertension. 6. Hypothyroidism. 7. Melanoma. 8. Chronic kidney disease. 9. Neuropathy. 10. Transient ischemic attacks. PAST SURGICAL HISTORY: 1. Appendectomy. 2. Laparoscopic cholecystectomy. 3. Hysterectomy. 4. Tonsillectomy. 5. Lumbar fusion. 6. Bilateral knee replacements. 7. Bursectomies on bilateral hips. 8. Skin cancer removals which included melanoma, squamous cell carcinoma and basal cell carcinoma. 9. Benign cyst removed from the left foot. 10. Renal stents that have been subsequently removed. 11. Right shoulder arthroscopy. 12. Colonoscopy. 13. Esophagogastroduodenoscopy. 14. ERCP with stent placement and subsequent removal. 15. Carpal tunnel release. 16. Trigger finger release. CURRENT MEDICATIONS: 1. Estradiol. 2. Hydrocodone. 3. Nitroglycerin. 4. Pantoprazole. 5. Aspirin. 6. Atorvastatin. 7. Carvedilol. 8. Plavix. 9. Dicyclomine. 10. Lasix. 11. Tresiba. 12. Levothyroxine. 13. Losartan. 14. VESIcare. 15. Topamax. ALLERGIES: NO KNOWN ALLERGIES. FAMILY HISTORY: Positive for heart disease, cancer and Alzheimer's. SOCIAL HISTORY: She lives in [place]. She denies any smoking, ETOH or illicit drug use. REVIEW OF SYSTEMS: All systems are negative except as per History of Present Illness. She currently has no chest pain but does have some mild anxiety at this time. PHYSICAL EXAMINATION: VITAL SIGNS: Temperature 97, heart rate 60, blood pressure 133/64, respiratory rate 18, O2 sat is 94% on 2 liters nasal cannula. GENERAL: This is an 87 year-old female patient who is lying in her hospital bed. She is in no acute distress. HEENT: Normocephalic and atraumatic. Pupils are equal and reactive. Oropharynx is clear. NECK: Supple without mass. CHEST: Essentially clear to auscultation bilaterally. There is equal rise and fall of the chest with inspiration and expiration. CARDIOVASCULAR: Regular rate and rhythm. GASTROINTESTINAL: Abdomen is soft, nondistended, non-tender. Bowel sounds are positive. EXTREMITIES: No cyanosis, clubbing or edema. NEUROLOGIC: She is awake, alert and oriented times three. She is slightly anxious. LABORATORY: Labs and films are as per History of Present Illness. ASSESSMENT: 1. Chest pain rule out myocardial infarction. Her initial cardiac enzymes have been negative. 2. Gastritis with a significant history of pancreatitis. She recently had an EGD done about 2 months ago. 3. Anxiety. 4. History of pancreatitis. 5. History of hypertension. 6. Gastroesophageal reflux disease. 7. Diabetes mellitus type 2. PLAN: We will place the patient in Observation. I have initiated the chest pain guidelines. So far her cardiac enzymes have been negative. I will restart her home medications, including her Bentyl. I have also added some Carafate as well as some Ativan. It may be necessary to be discharged on some Benzodiazepines due to her anxiety. She is on a PPI for ulcer prophylaxis as well as Lovenox for DVT prophylaxis. Plan discharge for tomorrow with close followup with Dr. Jauregui, to see her auto specialty services manager and her GI doctor. [facility][id number] [facility]
[2018-05-16] MEDS ORDERED: MORPHINE SULFATE INJ 10 MG/ML VIAL IV PRN (01:25)
[2018-05-16] MEDS ORDERED: NITROGLYCERIN 0.4 MG 25 EA TAB SL PRN (01:25)
[2018-05-16] MEDS ORDERED: SODIUM CHLORIDE 0.9% (FLUSH) 10 ML SYG IV PRN (01:25)
[2018-05-16] MEDS ORDERED: ACETAMINOPHEN 325 MG TAB PO PRN (01:25)
[2018-05-16] MEDS ORDERED: IV SET AND CAP CHANGE INJ INJ SCH (01:30)
[2018-05-16] MEDS ORDERED: SUCRALFATE 1 GM TAB PO ONE (08:25)
[2018-05-16] MEDS ORDERED: LORazepam 0.5 MG TAB ONE (08:25)
[2018-05-16] MEDS: SUCRALFATE 1 GM TAB PO SCH ×4 (08:29→20:58)
[2018-05-16] MEDS ORDERED: LORazepam 0.5 MG TAB PO ONE (08:30)
[2018-05-16] MEDS: SODIUM CHLORIDE 0.9% (FLUSH) 10 ML SYG IV SCH ×2 (09:38→20:59)
[2018-05-16] MEDS: ENOXAPARIN SODIUM 40 MG/0.4 ML SYG SUBCU SCH (09:38)
[2018-05-16] MEDS ORDERED: HYDROcodone 5MG/APAP 325MG 1 EA TAB PO PRN (10:07)
[2018-05-16] MEDS: CLOPIDOGREL 75 MG TAB PO SCH (10:49)
[2018-05-16] MEDS: LOSARTAN POTASSIUM 25 MG TAB PO SCH (10:49)
[2018-05-16] MEDS: TOPIRAMATE 25 MG TAB PO SCH (10:49)
[2018-05-16] MEDS: CARVEDILOL 3.125 MG TAB PO SCH ×2 (10:49→20:58)
[2018-05-16] MEDS: FUROSEMIDE 40 MG TAB PO SCH (10:49)
[2018-05-16] MEDS: DICYCLOMINE HCL 20 MG TAB PO SCH ×2 (11:59→16:21)
[2018-05-16] MEDS ORDERED: TOLTERODINE TARTRATE ER 4 MG CAP PO SCH (21:00)
[2018-05-16] MEDS ORDERED: INSULIN DEGLUDEC 12 UNIT SC SCH (21:00)
[2018-05-16] MEDS ORDERED: ATORVASTATIN 20 MG TAB PO SCH (21:00)
[2018-05-17] MEDS ORDERED: LEVOTHYROXINE SODIUM 0.025 MG TAB PO SCH (06:30)
[2018-05-17] MEDS: DICYCLOMINE HCL 20 MG TAB PO SCH ×3 (07:09→12:53)
[2018-05-17] MEDS: SUCRALFATE 1 GM TAB PO SCH ×3 (07:09→12:53)
[2018-05-17] MEDS: TOPIRAMATE 25 MG TAB PO SCH (08:48)
[2018-05-17] MEDS: CARVEDILOL 3.125 MG TAB PO SCH (08:48)
[2018-05-17] MEDS: CLOPIDOGREL 75 MG TAB PO SCH (08:48)
[2018-05-17] MEDS: LOSARTAN POTASSIUM 25 MG TAB PO SCH (08:48)
[2018-05-17] MEDS: SODIUM CHLORIDE 0.9% (FLUSH) 10 ML SYG IV SCH (08:48)
[2018-05-17] MEDS: ENOXAPARIN SODIUM 40 MG/0.4 ML SYG SUBCU SCH (08:48)
[2018-05-17] MEDS: FUROSEMIDE 40 MG TAB PO SCH (08:51)
[2018-05-17] MEDS ORDERED: ASPIRIN TABLET 325 MG TAB PO SCH (09:00)
[2018-05-17] MEDS ORDERED: ASPIRIN (ENTERIC COATED) 81 MG TAB PO SCH (09:00)
[2018-05-17 13:57] VITALS: BP 174/73; TEMP 98.8; O2SAT 99
--- NOTE | 2018-05-17 19:02 | DS ---
SUPERVISING PHYSICIAN: Willy Silverman M.D. ADMISSION DIAGNOSIS: 1. Chest pain rule out ACS. 2. Gastritis with a history of pancreatitis. 3. Anxiety. 4. History of pancreatitis. 5. History of hypertension. 6. Gastroesophageal reflux disease. 7. Diabetes mellitus type 2. DISCHARGE DIAGNOSIS: 1. Chest pain rule out ACS. 2. Gastritis with a history of pancreatitis. 3. Anxiety. 4. History of pancreatitis. 5. History of hypertension. 6. Gastroesophageal reflux disease. 7. Diabetes mellitus type 2. HOSPITAL COURSE: This is an 87 year-old female patient who presented to the Emergency Room secondary to substernal chest pain. She has a cardiac history and had a stent placed about 10 months ago. She recently had a workup by her GI doctor in [place] as she has had recurrent problems with pancreatitis. She has also had a history of gastritis in the past. She had an endoscopy about 2 months ago. She is actually on Bentyl and a PPI. In the Emergency Room , her initial cardiac enzymes were negative. She was given a GI cocktail as well as some Carafate and her pain subsided. She had been very anxious earlier in the day because she had an aunt that was to be flying and she was worried about her. She does admit to getting easily worked up with pretty significant anxiety. In the E. R., her WBCs were 5.5 with 10.1 and 31.5 H&H. Electrolytes were basically within normal limits. BUN was slightly elevated at 32. BNP was also slightly elevated at 204 with serum total protein of 6.2. Subsequent cardiac enzymes were also negative. UA was basically within normal limits other than having a trace of urine blood. Chest x-ray showed no acute findings or focal consolidation. Serial cardiac markers as well as EKG remain negative. Her symptoms resolved, however she did have some anxiety. She did benefit from some Ativan that was given. She also had Carafate added to her therapy. On the morning of 05/17/18, the patient anticipated going home and has no symptoms. PLAN: Therefore she is being discharged in stable condition with a prescription for p.r.n. Xanax as well as scheduled Carafate. I instructed her to follow her regular diet and increase activity as tolerated. She will have a followup appointment with Dr. Jauregui on June 01 at 2:00 PM. #[id number] [facility]
== END 2018-05-17 15:30 | disposition home or self-care (01) ==
LOC: ER 22:51 → MS 05-16 01:04
PROVIDERS: ADMIT Nurse Practitioner Acute Care; ATTEND Nurse Practitioner
DX: K29.00 Acute gastritis without bleeding (principal); R07.89 Other chest pain; K86.1 Other chronic pancreatitis; F41.9 Anxiety disorder, unspecified; I12.9 Hypertensive chronic kidney disease with stage 1 through stage 4 chronic kidney disease, or unspecified chronic kidney disease; K21.9 Gastro-esophageal reflux disease without esophagitis; E11.40 Type 2 diabetes mellitus with diabetic neuropathy, unspecified; E78.5 Hyperlipidemia, unspecified; E03.9 Hypothyroidism, unspecified; E11.22 Type 2 diabetes mellitus with diabetic chronic kidney disease; N18.9 Chronic kidney disease, unspecified; R00.1 Bradycardia, unspecified; Z79.4 Long term (current) use of insulin; Z79.02 Long term (current) use of antithrombotics/antiplatelets; Z79.82 Long term (current) use of aspirin; Z79.891 Long term (current) use of opiate analgesic; Z79.899 Other long term (current) drug therapy; Z96.89 Presence of other specified functional implants; Z86.73 Personal history of transient ischemic attack (TIA), and cerebral infarction without residual deficits; Z85.820 Personal history of malignant melanoma of skin
CPT/HCPCS: 96372 ×2; J1650 ×2; J7050 ×2; 80048; 82553 ×3; 80053; 80061; 36415 ×4; 82150; 81001; 85025 ×2; 82550 ×3; 83690; 85730; 85610; 84484 ×3; 83880; 71045; 94760 ×5; 99285; 93005 ×3; G0378; 96374

== ENCOUNTER → 2018-09-22 | Outpatient (CLI) | payer MEDICARE, OTHER | LOC: GMAJ 19:23 | PROVIDERS: ATTEND Family Medicine | DX: E03.9 Hypothyroidism, unspecified (principal) ==

== ENCOUNTER 2019-01-30 20:28 | Emergency (ER) | payer MEDICARE, OTHER ==
[2019-01-30 21:19] VITALS: TEMP 99.3; O2SAT 98
[2019-01-30] MEDS ORDERED: HYDROCOD/APAP 7.5/325 (ER DISP) #3 TAB PO ONE (22:29)
[2019-01-30] MEDS ORDERED: NITROFURANTOIN MONOHYDRATE MAC 100 MG CAP PO ONE (22:29)
[2019-01-30] MEDS ORDERED: HYDROcodone 7.5MG/APAP 325MG 1 EA TAB PO ONE (22:29)
[2019-01-30] MEDS ORDERED: cefTRIAXone SODIUM 1 GM VIAL IM ONE (22:29)
[2019-01-30] MEDS ORDERED: PHENAZOPYRIDINE HCL 200 MG TAB PO ONE (22:29)
[2019-01-30] MEDS ORDERED: HYOSCYAMINE SULFATE 0.125 MG TAB PO ONE (22:31)
[2019-01-30] MEDS ORDERED: LIDOCAINE 1% 2 ML VIAL INJ ONE (22:33)
--- NOTE | 2019-01-30 22:41 | ED.PDOC ---
History of Present Illness - General Chief Complaint: Problem Stated Complaint: Dx c UTI on abx aren't working Time Seen by Provider: 01/30/19 22:23 Source: patient Exam Limitations: no limitations - History of Present Illness Initial Comments: Halina Adams 88 y/o female stated that she had frequency and urgency of urination since -4 days ago had seen primary Md and was prescribed Cipro but not beter since she started taking it 3 days ago.No fever ,no chills,no N/V. Timing/Duration: other - 4 days see hpi Quality: burning Onset Location: suprapubic Radiation: none Activites at Onset: none Prior abdominal problems: none Sexual intercourse history: not active Improving Factors: nothing Worsening Factors: nothing Associated Symptoms: other - see hpi Allergies/Adverse Reactions: Allergies NO KNOWN ALLERGY Allergy (Verified 01/30/19 21:42) Home Medications: Ambulatory Orders Atorvastatin Calcium [Lipitor] 40 mg PO HS #0 07/25/13 Clopidogrel Bisulfate [Plavix] 75 mg PO AM #0 07/25/13 Estrogens, Conjugated [Premarin] 0.3 mg PO AM #0 07/25/13 HYDROcodone 5MG/APAP 325MG [[place] 5/325] 1 ea PO Q4-6H PRN #0 07/25/13 Levothyroxine Sodium [Synthroid] 0.05 mg PO AM #0 07/25/13 Losartan Potassium 25 mg PO AM #0 07/25/13 Aspirin [Aspirin Adult Low Dose] 81 mg PO DAILY 02/09/18 Dicyclomine HCl [Bentyl] 10 mg PO TIDFD 02/09/18 Insulin Degludec [Tresiba Flextouch] 12 unit SC BEDTIME 02/09/18 Solifenacin [Vesicare] 5 mg PO BEDTIME 02/09/18 Carvedilol 3.125 mg PO BID 05/16/18 Furosemide [Lasix] 20 mg PO QAM 05/16/18 Hydrocodone-Acetaminophen [[place] 7.5-325 mg] 1 tab PO BID 05/16/18 Nitroglycerin 0.4 mg SL Q5MIN PRN 05/16/18 Pantoprazole Tablet [Protonix] 40 mg PO BIDFD 05/16/18 Topiramate [Topamax] 50 mg PO QAM 05/16/18 ALPRAZolam [Xanax] 0.25 mg PO BID PRN 30 Days #60 tab 05/17/18 Sucralfate Tab [Carafate Tab] 1 gm PO ACHS 30 Days #120 tab 05/17/18 Cefuroxime Axetil [Ceftin] 500 mg PO Q12H 7 Days #14 tablet 01/30/19 Nitrofurantoin Monohydrate Mac [Macrobid] 100 mg PO BID 7 Days #14 capsule 01/30/19 Phenazopyridine HCl [Pyridium] 200 mg PO BID #10 tab 01/30/19 Tolterodine Tartrate [Detrol] 1 mg PO BID #10 tab 01/30/19 Review of Systems - Review of Systems Genitourinary: States: see HPI All other Systems: Reviewed and Negative, No Change from Baseline Past Medical History (General) - Patient Medical History Hx Seizures: No Hx Stroke: No Hx Dementia: No Hx Asthma: No Hx of COPD: No Hx Cardiac Disorders: Yes - stent placed Hx Congestive Heart Failure: Yes Hx Pacemaker: No Hx Hypertension: Yes Hx Thyroid Disease: No Hx Diabetes: Yes Hx Gastroesophageal Reflux: Yes Hx Renal Disease: No Hx of HIV: No Hx MRSA: No Surgical History: appendectomy, cholecystectomy, tonsillectomy, other - hysterectomy,lower back,cardiac stent 1 1/2 years ago,urinary bladder, - Vaccination History Hx Influenza Vaccination: Yes Hx Pneumococcal Vaccination: Yes - Social History Hx Tobacco Use: No Hx Alcohol Use: No Hx Substance Use: No Hx Physical Abuse: No Hx Emotional Abuse: No Family Medical History - Family History Mother Family History: Unknown Hx Cardiac Disease: Yes - mom Hx Family Cancer: Yes - prostate-dad Physical Exam - Physical Exam General Appearance: Alert, Comfortable, No apparent distress Eyes, Ears, Nose, Throat Exam: normal ENT inspection Neck: supple, normal inspection Cardiovascular/Respiratory: regular rate, rhythm, normal peripheral pulses Gastrointestinal/Abdominal: non tender, soft, no organomegaly Back Exam: normal inspection, no CVA tenderness, no vertebral tenderness Extremity: no pedal edema, no calf tenderness Neurologic: alert, oriented x 3 Skin Exam: normal color, warm/dry Progress - Progress Progress: 01/30/19 22:45 Vital Signs - 24 hr 01/30/19 21:00 Temperature 99.3 F Pulse Rate [ 77 monitor] Respiratory 20 Rate Blood Pressure 170/63 [Left Arm] O2 Sat by Pulse 98 Oximetry - Results/Orders Results/Orders: 01/30/19 20:58 Urine Culture Stat Laboratory Results - last 24 hr 01/30/19 20:58 Urine Color Yellow Urine Appearance Cloudy Urine pH 6.0 Ur Specific [place] 1.010 Urine Protein Trace Urine Glucose (UA) >=1000 H Urine Ketones Negative Urine Blood Moderate H Urine Nitrite Negative Urine Bilirubin Negative Urine Urobilinogen 0.2 Ur Leukocyte Esterase Small H Urine RBC 3-5 H Urine WBC Tntc H Ur Epithelial Cells 1-3 Urine Bacteria 2+ H Discuss test result with patient Departure - Departure Clinical Impression: Urinary tract infection Qualifiers: Urinary tract infection type: site unspecified Hematuria presence: without hematuria Qualified Code(s): N39.0 - Urinary tract infection, site not specified Time of Disposition: 22:46 Disposition: Discharge to Home or Self Care Condition: Fair Departure Forms: ED Discharge - Pt. Copy, Patient Portal Self Enrollment Instructions: Urinary Tract Infection, Adult (DC), Urinary Tract Infections in Adults Referrals: Magdaleno Jauregui MD [Primary Care Provider] - 1-2 Weeks Prescriptions: Cefuroxime Axetil [Ceftin] 500 mg PO Q12H 7 Days #14 tablet Nitrofurantoin Monohydrate Mac [Macrobid] 100 mg PO BID 7 Days #14 capsule Phenazopyridine HCl [Pyridium] 200 mg PO BID #10 tab Tolterodine Tartrate [Detrol] 1 mg PO BID #10 tab Home Medications: Ambulatory Orders Atorvastatin Calcium [Lipitor] 40 mg PO HS #0 07/25/13 Clopidogrel Bisulfate [Plavix] 75 mg PO AM #0 07/25/13 Estrogens, Conjugated [Premarin] 0.3 mg PO AM #0 07/25/13 HYDROcodone 5MG/APAP 325MG [[place] 5/325] 1 ea PO Q4-6H PRN #0 07/25/13 Levothyroxine Sodium [Synthroid] 0.05 mg PO AM #0 07/25/13 Losartan Potassium 25 mg PO AM #0 07/25/13 Aspirin [Aspirin Adult Low Dose] 81 mg PO DAILY 02/09/18 Dicyclomine HCl [Bentyl] 10 mg PO TIDFD 02/09/18 Insulin Degludec [Tresiba Flextouch] 12 unit SC BEDTIME 02/09/18 Solifenacin [Vesicare] 5 mg PO BEDTIME 02/09/18 Carvedilol 3.125 mg PO BID 05/16/18 Furosemide [Lasix] 20 mg PO QAM 05/16/18 Hydrocodone-Acetaminophen [[place] 7.5-325 mg] 1 tab PO BID 05/16/18 Nitroglycerin 0.4 mg SL Q5MIN PRN 05/16/18 Pantoprazole Tablet [Protonix] 40 mg PO BIDFD 05/16/18 Topiramate [Topamax] 50 mg PO QAM 05/16/18 ALPRAZolam [Xanax] 0.25 mg PO BID PRN 30 Days #60 tab 05/17/18 Sucralfate Tab [Carafate Tab] 1 gm PO ACHS 30 Days #120 tab 05/17/18 Cefuroxime Axetil [Ceftin] 500 mg PO Q12H 7 Days #14 tablet 01/30/19 Nitrofurantoin Monohydrate Mac [Macrobid] 100 mg PO BID 7 Days #14 capsule 01/30/19 Phenazopyridine HCl [Pyridium] 200 mg PO BID #10 tab 01/30/19 Tolterodine Tartrate [Detrol] 1 mg PO BID #10 tab 01/30/19 Additional Instructions: May use heating pad suprapubic area for 10 minutes 3 x a day during waking hours only for 5 days as needed;follow up with primary Md 02 February 2019 for recheck;return to emergency room as needed
[2019-01-30] MEDS ORDERED: HYDROCOD/APAP 5/325 (ER DISP) #3 TAB PO ONE (22:48)
[2019-01-30 23:08] VITALS: BP 164/57
== END 2019-01-30 23:09 | disposition home or self-care (01) ==
LOC: ER 20:28
DX: N39.0 Urinary tract infection, site not specified (principal); K21.9 Gastro-esophageal reflux disease without esophagitis; I50.9 Heart failure, unspecified; I10 Essential (primary) hypertension; E11.9 Type 2 diabetes mellitus without complications; Z95.5 Presence of coronary angioplasty implant and graft; Z79.4 Long term (current) use of insulin; Z79.82 Long term (current) use of aspirin; Z79.899 Other long term (current) drug therapy
CPT/HCPCS: 81001; 87086; J0696

== ENCOUNTER → 2019-06-15 | Outpatient (CLI) | payer MEDICARE, OTHER | LOC: GMAJ 11:49 | PROVIDERS: ATTEND Family Medicine | DX: E03.9 Hypothyroidism, unspecified (principal); E11.69 Type 2 diabetes mellitus with other specified complication; I10 Essential (primary) hypertension; E78.2 Mixed hyperlipidemia ==

== ENCOUNTER 2020-02-27 19:43 | Emergency (ER) | payer MEDICARE, OTHER ==
[2020-02-27] MEDS ORDERED: SODIUM CHLORIDE 0.9% (FLUSH) 10 ML SYG IV PRN (19:48)
[2020-02-27] MEDS ORDERED: ONDANSETRON INJ 4 MG/2 ML VIAL IV ONE (20:04)
[2020-02-27] MEDS ORDERED: fentaNYL CITRATE INJ 50 MCG/ML 2 ML AMP IV ONE ×3 (20:04→23:02)
[2020-02-27] MEDS ORDERED: SODIUM CHLORIDE 0.9% 1000ML 1,000 ML IVS ONE (20:04)
--- NOTE | 2020-02-27 20:10 | ED.PDOC ---
History of Present Illness - General Chief Complaint: GI Problem Stated Complaint: abd pain Time Seen by Provider: 02/27/20 19:47 Source: patient - History of Present Illness Initial Comments: 89 yo female with PMH of HTN, CAD, coronary stent, chronic pancreatitis, DM2 who presents with cc of abdominal pain. Onset 3 days ago and worsening, further worsened today. Located to epigastric region, no radiation, constant, dull aching, 8/10 severity, worse 1-2 hours after trying to eat, tried [place] 7.5 x3 today w/o relief. States feels like pancreatitis sx's. [facility] last episode was 3-4 years ago but noted to be hospitalized here 02/2019 for pancreatitis. PCP is Dr. Jauregui. GI is Dr. Andres Roldan ([facility]) and provider network analyst is Dr. Aaron. has had numerous abd surgeries and "stents in my gut" - last was 2-3 years ago. Reports recent "roto-router" of her coronary stent 3 months ago at [place] after having persistent heartburn sx's. Denies any nausea, vomiting, diarrhea, fevers, chills, chest pain, dyspnea, cough, fever, sore throat, urinary sx's, leg swelling. Pt admits to indulging in some rich foods over Mother's Day weekend and drinking 1 glass of wine 2 days ago which she believes has worsened her sx's. Allergies/Adverse Reactions: Allergies NO KNOWN ALLERGY Allergy (Verified 02/27/20 20:08) Home Medications: Ambulatory Orders RX: Atorvastatin Calcium [Lipitor] 40 mg PO HS #0 07/25/13 RX: Clopidogrel Bisulfate [Plavix] 75 mg PO AM #0 07/25/13 RX: Estrogens, Conjugated [Premarin] 0.3 mg PO AM #0 07/25/13 RX: Losartan Potassium 25 mg PO AM #0 07/25/13 RX: Aspirin [Aspirin Adult Low Dose] 81 mg PO DAILY 02/09/18 RX: Dicyclomine HCl [Bentyl] 10 mg PO TIDFD 02/09/18 RX: Insulin Degludec [Tresiba Flextouch] 18 unit SC BEDTIME 02/09/18 RX: Carvedilol 12.5 mg PO BID 05/16/18 RX: Furosemide [Lasix] 20 mg PO QAM 05/16/18 RX: Hydrocodone-Acetaminophen [[place] 7.5-325 mg] 1 - 2 tab PO Q4HR PRN 05/16/18 RX: Nitroglycerin 0.4 mg SL Q5MIN PRN MDD 3 doses 05/16/18 RX: Topiramate [Topamax] 50 mg PO BID 05/16/18 RX: Levothyroxine Sodium [Synthroid] 50 mcg PO ACBK 02/20/19 Famotidine [Pepcid] 20 mg PO BID 02/27/20 Insulin Aspart [Novolog Flexpen] 6 unit SC .NOON 02/27/20 Mirabegron [Myrbetriq] 25 mg PO DAILY 02/27/20 Review of Systems - Review of Systems Review of Systems: 02/27/20 20:09 as per HPI All other Systems: Reviewed and Negative Past Medical History (General) - Patient Medical History Hx Seizures: No Hx Stroke: No Hx Dementia: No Hx Asthma: No Hx of COPD: No Hx Cardiac Disorders: Yes - stent placed Hx Congestive Heart Failure: Yes Hx Pacemaker: No Hx Hypertension: Yes Hx Thyroid Disease: No Hx Diabetes: Yes Hx Gastroesophageal Reflux: Yes Hx Renal Disease: No Hx of HIV: No Hx MRSA: No - Vaccination History Hx Influenza Vaccination: Yes Hx Pneumococcal Vaccination: Yes - Social History Hx Tobacco Use: No Hx Alcohol Use: No Hx Substance Use: No Hx Physical Abuse: No Hx Emotional Abuse: No Family Medical History - Family History Mother Family History: Unknown Living Status: Age at (years of age): 82 Cause of : Heart Attack Hx Family Asthma: Yes Hx Family Congestive Heart Failure: Yes Hx Family Hypertension: Yes Hx Family Stroke: No Hx Cardiac Disease: Yes - mom Hx Family Diabetes: No Hx Family Cancer: Yes - prostate-dad Physical Exam - Physical Exam General Appearance: Alert, Comfortable, No apparent distress Eye Exam: bilateral normal Ears, Nose, Throat: hearing grossly normal, normal ENT inspection, normal pharynx Neck: non-tender, supple, normal inspection Respiratory: lungs clear, normal breath sounds, no respiratory distress, no accessory muscle use Cardiovascular/Chest: normal peripheral pulses, regular rate, rhythm, no edema, no gallop, no JVD, no murmur Peripheral Pulses: radial,right: 2+, radial,left: 2+ Gastrointestinal/Abdominal: soft, abnormal bowel sounds - diminished throughout, tenderness - marked to epigastric region Back Exam: normal inspection, no CVA tenderness, no vertebral tenderness Extremity: normal range of motion, non-tender, normal inspection, no pedal edema, no calf tenderness Neurologic: medical scientific officer II-XII nml as tested, no motor/sensory deficits, alert, normal mood/affect, oriented x 3 Skin Exam: normal color, warm/dry Progress - Progress Progress: 02/27/20 20:11 Acute abdominal pain -consider acute on chronic pancreatitis, gastritis/GERD, ACS, CHF, gastroenteritis, cholangitis, SBO, ileus, ischemic bowel, other -pt stable, NAD, afebrile, BP elevated 180s/100s, vitals otherwise wnl -obtain labs, cardiac work-up, UA, CXR, EKG, CRP -place PIV, 1 L NS bolus, Fentanyl 50 mcg IV, Zofran 4 mg IV 02/27/20 22:39 -Pain well-controlled with Fentanyl 50 mcg IV x2 now in ED. -Labwork largely reassuring - WBC 7.5k w/o left shift or bands, lactate 1.3. Lipase/amylase wnl, LFT's wnl, T bili wnl. CRP minimally elevated to 1.4. CT A/P obtained which revealed abrupt progression of pancreatic ductal dilatation from 9 to 15 mm near the head of the pancreas raising concern for possible mass or stricture. MRI of the abdomen recommended for further evaluation. No other acute processes noted. -Spoke with Dr. Sheikh who is recommending GI consultation. 02/27/20 22:59 -Spoke with on-call GI doctor at [facility], Dr. Barcenas, who recommends transfer to hospital floor there for GI consultation and further work-up. Concerned she may have a stricture or obstruction and need pancreatic duct stent placement. 02/28/20 00:00 -Spoke with Andreea BO, at [facility] who accepts pt to hospital med- surg floor. Will go in stable condition via ground EMS. Awaiting available bed. -Pt continues to require intermittent IV pain medication to keep her pain under control but is otherwise remained stable. Kike Baldwin MD Billing #[id number] 02/27/20 19:48 IV Care:Saline Lock per Protoc QSHIFT 02/27/20 20:15 EKG STAT 02/27/20 20:37 Hold Metformin x 48Hrs [id number] Laboratory Results - last 24 hr 02/27/20 02/27/20 02/27/20 20:01 20:01 20:01 WBC 7.5 RBC 4.66 Hgb 13.2 Hct 40.7 MCV 87.4 MCH 28.3 MCHC 32.4 L RDW 16.8 H Plt Count 206 MPV 7.8 Absolute Neuts (auto) 5.50 Absolute Lymphs (auto) 1.10 Absolute Monos (auto) 0.70 Absolute Eos (auto) 0.20 Absolute Basos (auto) 0.00 Neutrophils % 72.7 Lymphocytes % 14.9 L Monocytes % 8.8 Eosinophils % 3.1 Basophils % 0.5 Sodium 137 Potassium 3.3 L Chloride 104 Carbon Dioxide 24 Anion Gap 12.3 BUN 24 H Creatinine 0.88 BUN/Creatinine Ratio 27.3 H Random Glucose 71 Serum Osmolality 276.3 Lactic Acid 1.3 Calcium 9.9 Total Bilirubin 0.6 Direct Bilirubin 0.1 Indirect Bilirubin 0.5 AST 22 ALT 15 Alkaline Phosphatase 103 Troponin I C-Reactive Protein 1.4 H B-Natriuretic Peptide Serum Total Protein 8.2 Albumin 4.0 Amylase 46 Lipase 38 Urine Color Urine Appearance Urine pH Ur Specific [place] Urine Protein Urine Glucose (UA) Urine Ketones Urine Blood Urine Nitrite Urine Bilirubin Urine Urobilinogen Ur Leukocyte Esterase Urine RBC Urine WBC Ur Epithelial Cells Urine Bacteria Hyaline Casts 02/27/20 02/27/20 02/27/20 20:07 20:07 20:33 WBC RBC Hgb Hct MCV MCH MCHC RDW Plt Count MPV Absolute Neuts (auto) Absolute Lymphs (auto) Absolute Monos (auto) Absolute Eos (auto) Absolute Basos (auto) Neutrophils % Lymphocytes % Monocytes % Eosinophils % Basophils % Sodium Potassium Chloride Carbon Dioxide Anion Gap BUN Creatinine BUN/Creatinine Ratio Random Glucose Serum Osmolality Lactic Acid Calcium Total Bilirubin Direct Bilirubin Indirect Bilirubin AST ALT Alkaline Phosphatase Troponin I < 0.02 C-Reactive Protein B-Natriuretic Peptide 397.0 H* Serum Total Protein Albumin Amylase Lipase Urine Color Yellow Urine Appearance Clear Urine pH 5.0 Ur Specific [place] 1.020 Urine Protein Negative Urine Glucose (UA) Negative Urine Ketones Negative Urine Blood Negative Urine Nitrite Negative Urine Bilirubin Negative Urine Urobilinogen 0.2 Ur Leukocyte Esterase Negative Urine RBC 0 Urine WBC 0-1 Ur Epithelial Cells 0-1 Urine Bacteria 1+ Hyaline Casts 0-1 - EKG/XRAY/CT EKG: Garth - HR 55, no ST elevs, question q waves anteroseptal leads indicative of old NC, axis normal, OR interval prolonged 216 msecs, intervals otherwise normal, unchanged from 05/15/18 EKG., Sinus XRAY: chest - no acute processes per my read Departure - Departure Clinical Impression: Pancreatic duct dilated, Chronic pancreatitis, Epigastric abdominal pain Time of Disposition: 00:02 Disposition: Transfer to Hospital Condition: Fair Departure Forms: ED Discharge - Pt. Copy, Patient Portal Self Enrollment Referrals: Magdaleno Jauregui MD [Primary Care Provider] - 1-2 Weeks Home Medications: Ambulatory Orders RX: Atorvastatin Calcium [Lipitor] 40 mg PO HS #0 07/25/13 RX: Clopidogrel Bisulfate [Plavix] 75 mg PO AM #0 07/25/13 RX: Estrogens, Conjugated [Premarin] 0.3 mg PO AM #0 07/25/13 RX: Losartan Potassium 25 mg PO AM #0 07/25/13 RX: Aspirin [Aspirin Adult Low Dose] 81 mg PO DAILY 02/09/18 RX: Dicyclomine HCl [Bentyl] 10 mg PO TIDFD 02/09/18 RX: Insulin Degludec [Tresiba Flextouch] 18 unit SC BEDTIME 02/09/18 RX: Carvedilol 12.5 mg PO BID 05/16/18 RX: Furosemide [Lasix] 20 mg PO QAM 05/16/18 RX: Hydrocodone-Acetaminophen [[place] 7.5-325 mg] 1 - 2 tab PO Q4HR PRN 05/16/18 RX: Nitroglycerin 0.4 mg SL Q5MIN PRN MDD 3 doses 05/16/18 RX: Topiramate [Topamax] 50 mg PO BID 05/16/18 RX: Levothyroxine Sodium [Synthroid] 50 mcg PO ACBK 02/20/19 Famotidine [Pepcid] 20 mg PO BID 02/27/20 Insulin Aspart [Novolog Flexpen] 6 unit SC .NOON 02/27/20 Mirabegron [Myrbetriq] 25 mg PO DAILY 02/27/20 Transfer to Outside Facility - Transfer Information Decision to Transfer Date: 05/12/20 Decision to Transfer Time: 00:03 Reason for Transfer: required specialist not available - gastroenterology Accepting Provider:: Andreea ([employer]) Accepting Facility: [facility]
--- NOTE | 2020-02-27 20:30 | RAD ---
EXAM DESCRIPTION: Chest,1 View CLINICAL HISTORY:89 years Female, epigastric pain Comparison: May 15, 2018 FINDINGS: No focal lung consolidation. No pleural effusion. No pneumothorax. Cardiac and mediastinal silhouette is unremarkable. Aortic calcifications. No acute osseous abnormality. Soft tissues are unremarkable. IMPRESSION: No acute findings. No focal lung consolidation. Electronically signed by: Brendan Lenz MD 02/27/2020 8:29 PM CDT
[2020-02-27] MEDS ORDERED: POTASSIUM CHLORIDE 20 MEQ TAB PO ONE (20:36)
--- NOTE | 2020-02-27 21:57 | CT ---
EXAM DESCRIPTION: Abdomen/Pelvis w/Contrast CLINICAL HISTORY: 89 years Female acute epigastric pain, hx of chronic pancreatitis COMPARISON: 02/20/2019 and 02/10/2018. TECHNIQUE: Contiguous axial images obtained through the abdomen and pelvis following IV contrast. Reformatted images obtained. This exam was performed according to our department optimization program which includes automated exposure control, adjustment of the mA and/or kv according to patient size and/or use of iterative reconstruction technique. FINDINGS: There is a minimal right pleural effusion similar compared to the prior study. Mild scarring/atelectasis in the lower lungs greater on the right. Mild elevation of the right hemidiaphragm. Coronary artery calcifications. The liver appears slightly heterogeneous likely from fatty infiltration. The spleen appears unremarkable. There is marked dilatation of the pancreatic duct with some calcifications in the pancreas. The pancreatic duct measures up to 1.5 cm in diameter. The pancreatic duct on the study from January 2018 measured up to approximately 0.9 cm in diameter. There appears to be an abrupt transition of the size of the pancreatic duct in the pancreatic head. The findings may be from chronic pancreatitis but an intraductal mass cannot be excluded on this study. MRI of the abdomen is recommended to better evaluate. No adrenal masses. There are small renal cysts. No hydronephrosis. The gallbladder is not visualized. Atherosclerotic calcifications. No aneurysmal dilatation of the aorta. . There are stents at the origins of the bilateral renal arteries. There is hyperdense material in the lower esophagus and stomach presumably from ingested food. Reflux or dysmotility is not excluded. No bowel obstruction. The appendix is not visualized. There is colonic diverticulosis No significant free pelvic fluid. There are changes from previous hysterectomy. Degenerative changes in the spine. There are postsurgical changes in the lumbar spine. IMPRESSION: Minimal right pleural effusion similar compared to the prior study. There is marked dilatation of the pancreatic duct which is increased in comparison to the previous studies. The findings could be from chronic pancreatitis but MRI is recommended to exclude the possibility of an intraductal mass. Marked atherosclerotic disease. Other findings as above. Electronically signed by: Ethan Barron MD 02/27/2020 9:55 PM CDT
[2020-02-28] MEDS ORDERED: fentaNYL CITRATE INJ 50 MCG/ML 2 ML AMP IV ONE (00:58)
[2020-02-28 01:02] VITALS: TEMP 97; O2SAT 99
[2020-02-28 01:16] VITALS: BP 183/57
== END 2020-02-28 01:29 | disposition short-term general hospital (02) ==
LOC: ER 19:43
DX: K86.1 Other chronic pancreatitis (principal); K86.89 Other specified diseases of pancreas; R10.13 Epigastric pain; I10 Essential (primary) hypertension; I25.10 Atherosclerotic heart disease of native coronary artery without angina pectoris; E11.9 Type 2 diabetes mellitus without complications; I50.9 Heart failure, unspecified; Z95.5 Presence of coronary angioplasty implant and graft
CPT/HCPCS: 36415; 71045; 74177; 80048; 80076; 81001; 82150; 83605; 83690; 83880; 84484; 85025; 86140; 93005; J2405; J3010; J7030

== ENCOUNTER → 2020-04-05 | Outpatient (CLI) | payer MEDICARE, OTHER | LOC: BFHH 11:07 | PROVIDERS: ATTEND Family Medicine | DX: K86.1 Other chronic pancreatitis (principal); I25.10 Atherosclerotic heart disease of native coronary artery without angina pectoris; E11.22 Type 2 diabetes mellitus with diabetic chronic kidney disease; I13.0 Hypertensive heart and chronic kidney disease with heart failure and stage 1 through stage 4 chronic kidney disease, or unspecified chronic kidney disease; I50.9 Heart failure, unspecified; E03.9 Hypothyroidism, unspecified; N18.3 Chronic kidney disease, stage 3 (moderate) ==

== ENCOUNTER → 2020-07-31 | Outpatient (CLI) | payer MEDICARE, OTHER | LOC: BFHH 11:54 | PROVIDERS: ATTEND Family Medicine | DX: K86.1 Other chronic pancreatitis (principal); I25.10 Atherosclerotic heart disease of native coronary artery without angina pectoris; I12.9 Hypertensive chronic kidney disease with stage 1 through stage 4 chronic kidney disease, or unspecified chronic kidney disease; E11.22 Type 2 diabetes mellitus with diabetic chronic kidney disease; N18.9 Chronic kidney disease, unspecified; I48.0 Paroxysmal atrial fibrillation; D63.8 Anemia in other chronic diseases classified elsewhere; E11.42 Type 2 diabetes mellitus with diabetic polyneuropathy ==

== ENCOUNTER → 2020-10-30 | Outpatient (CLI) | payer MEDICARE, OTHER | LOC: GMAJ 17:34 | PROVIDERS: ATTEND Family Medicine | DX: N30.00 Acute cystitis without hematuria (principal) ==

== ENCOUNTER → 2020-11-30 | Outpatient (CLI) | payer MEDICARE, OTHER | LOC: BFHH 10:14 | PROVIDERS: ATTEND Family Medicine | DX: E11.65 Type 2 diabetes mellitus with hyperglycemia (principal); K86.1 Other chronic pancreatitis; I25.10 Atherosclerotic heart disease of native coronary artery without angina pectoris; I12.9 Hypertensive chronic kidney disease with stage 1 through stage 4 chronic kidney disease, or unspecified chronic kidney disease; E11.22 Type 2 diabetes mellitus with diabetic chronic kidney disease; N18.9 Chronic kidney disease, unspecified; D63.8 Anemia in other chronic diseases classified elsewhere ==